=== PATIENT | female | born 1995 | race African-American/Black ===

== ENCOUNTER 2023-12-14 10:20 | Emergency (ER) | payer BC, OTHER ==
[~2023-12-14] VITALS: Ht 170.2 cm; Wt 104.3 kg
[~2023-12-14 10:20] MED LIST: ULTRAM 50MG50 MG PO
[2023-12-14 10:38] VITALS: PULSE 69; RESP 17; TEMP 97.3
[2023-12-14] MEDS: LIDOCAINE HCL 1% LOCAL INJ 20 ML VIAL INJ ONE (11:33)
[2023-12-14 11:46] VITALS: BP 129/89; PULSE 60; RESP 16; TEMP 98.8; O2SAT 100
== END 2023-12-14 11:48 | disposition home or self-care (01) ==
LOC: ER 10:23
DX: S91.311A Laceration without foreign body, right foot, initial encounter (principal); W25.XXXA Contact with sharp glass, initial encounter; Y92.89 Other specified places as the place of occurrence of the external cause
CPT/HCPCS: 12001; 73620; 99283; J2001